=== PATIENT | female | born 1990 | race Caucasian/White ===

== ENCOUNTER → 2017-02-16 | Outpatient (CLI) | payer BC ==
[2017-02-16 20:19] LABS: BASO % 0.2 % (0.0-1.0); EOS # 0.1 K/mm3 (0.0-0.50); EOS % 0.9 % (0.0-3.0); LARGE UNSTAINED CELL # 0.1 K/mm3 (0.0-0.4); LARGE UNSTAINED CELL % 0.7 % (0.0-4.0); LYMPH # 1.6 K/mm3 (1.5-6.5); LYMPH % 17.6 % (24.0-44.0); MEAN CORPUSCULAR HEMOGLOBIN 30.8 pg (27.0-33.0); MEAN CORPUSCULAR HGB CONC 34.3 g/dl (32.0-36.5); MEAN CORPUSCULAR VOLUME 89.9 fl (80.0-96.0); MONO # 0.4 K/mm3 (0.0-0.8); MONO % 3.9 % (0.0-5.0); NEUTROPHILS # 6.8 K/mm3 (1.8-7.7); NEUTROPHILS % 76.7 % (36.0-66.0); PLATELET COUNT, AUTOMATED 342 k/mm3 (150-450); RED CELL DISTRIBUTION WIDTH 12.9 % (11.5-14.5); WHITE BLOOD COUNT 8.9 K/mm3 (4.0-10.0)
[2017-02-17 11:56] LABS: HBsAg Prenatal NEGATIVE (NEGATIVE)
== END ==
LOC: M SMT 14:28
PROVIDERS: ATTEND Advanced Practice Midwife
DX: Z34.81 Encounter for supervision of other normal pregnancy, first trimester (principal)

== ENCOUNTER → 2017-03-05 | Outpatient (REF) | payer BC | LOC: M LAB REF 14:56 | PROVIDERS: ATTEND Advanced Practice Midwife | DX: Z34.81 Encounter for supervision of other normal pregnancy, first trimester (principal) ==

== ENCOUNTER → 2017-03-12 | Outpatient (CLI) | payer BC ==
--- NOTE | 2017-03-16 14:55 | REP ---
OBSTETRIC SONOGRAPHY: HISTORY: Supervision of . FINDINGS: Scanning demonstrates a viable single intrauterine gestation in a free-floating lie. heart rate is recorded at 169 beats per minute. Closed cervical length is 3.8 cm viewed transabdominally. An anterior placenta is seen without evidence of previa. No extrauterine abnormalities observed. No gross anomaly is seen. BIOMETRY CHART: BPD 2.4 cm = 14 weeks 0 days Head circumference 9.0 cm = 14 weeks 0 days Abdominal circumference 7.3 cm = 13 weeks 6 days Femur length 1.0 cm = 13 weeks 0 days Humeral length 1.1 cm = 12 weeks 6 days HC/AC ratio normal 1.23 Cephalic index normal 0.73 Estimated weight 76 grams, 0 pounds 2 ounces, 12th percentile for 14 weeks 1 day. IMPRESSION: Viable single intrauterine gestation at 13 weeks 4 days by today's composite sonographic criteria. MARA by today's sonography 09/13/2017. Signed by Koffi Harry MD 03/16/2017 04:36 P
== END ==
LOC: M RAD 15:14
PROVIDERS: ATTEND Advanced Practice Midwife
DX: Z36 Encounter for antenatal screening of mother (principal)

== ENCOUNTER → 2017-04-05 | Outpatient (REF) | payer BC | LOC: M LAB REF 12:52 | PROVIDERS: ATTEND Advanced Practice Midwife | DX: Z34.82 Encounter for supervision of other normal pregnancy, second trimester (principal) ==

== ENCOUNTER → 2017-04-14 | Outpatient (CLI) | payer BC | LOC: M LAB 15:05 | PROVIDERS: ATTEND Obstetrics & Gynecology | DX: Z34.82 Encounter for supervision of other normal pregnancy, second trimester (principal) ==

== ENCOUNTER → 2017-04-23 | Outpatient (CLI) | payer BC ==
--- NOTE | 2017-04-23 19:09 | REP ---
Obstetric sonography: History: Supervision of for anatomy. Findings: Scanning through the gravid uterus demonstrates a viable single intrauterine gestation in a variable lie. Fetus began the exam in a transverse lie and ended in a breech. motion is identified and heart rate is recorded at 144 beats per minute. An anterior grade 0 placenta is seen without evidence of previa or abruption. Amniotic fluid is subjectively normal. Closed cervical length is 4.0 cm measured transabdominally. No extrauterine abnormalities observed. There has been appropriate interval growth. No anomaly is seen. nose and lips were less than optimally seen. Facial profile is observed, however. Left ventricular cardiac outflow tract view was less than optimally achieved due to position as was the spine. The following anatomic structures are identified and felt to be unremarkable: cranium, choroid plexus, cavum, cerebellum and posterior fossa, lungs, four-chamber heart with right ventricular outflow tract view, diaphragm, left-sided stomach, abdominal wall cord insertion, three-vessel umbilical cord, kidneys and bladder, upper and lower extremities. Biometry chart: BPD 4.5 cm = 19 weeks 5 days HC 17.2 cm = 19 week 6 days AC 14.9 cm = 20 weeks 1 day FL 3.1 cm = 19 weeks 3 days HL 2.9 cm = 19 weeks 3 days HC/AC ratio normal 1.15. Cephalic index normal 0.72. Estimated weight 316 grams 0 pounds 11 ounces, 38th percentile for 20 weeks 1 day. Impression: Viable single intrauterine gestation at 19 weeks 5 days by today's composite criteria. Expected gestational age estimate based on prior sonography is 19 weeks 4 days. MARA by prior sonography September 13, 2017. anatomic survey less than complete. Visualization of nose and lips, left ventricular outflow tract view, and spine. Signed by Koffi Harry MD 04/23/2017 07:25 P
== END ==
LOC: M RAD 14:59
PROVIDERS: ATTEND Specialist
DX: Z36.2 Encounter for other antenatal screening follow-up (principal)

== ENCOUNTER → 2017-06-08 | Outpatient (CLI) | payer BC ==
[2017-06-08 13:45] LABS: MEAN CORPUSCULAR HEMOGLOBIN 30.7 pg (27.0-33.0); MEAN CORPUSCULAR HGB CONC 32.9 g/dl (32.0-36.5); MEAN CORPUSCULAR VOLUME 93.5 fl (80.0-96.0); PLATELET COUNT, AUTOMATED 293 10^3/uL (150-450); RED CELL DISTRIBUTION WIDTH 13.2 % (11.5-14.5)
== END ==
LOC: M SMT 10:23
PROVIDERS: ATTEND Obstetrics & Gynecology
DX: Z34.82 Encounter for supervision of other normal pregnancy, second trimester (principal)

== ENCOUNTER → 2017-08-19 | Outpatient (REF) | payer BC | LOC: M LAB REF 17:01 | DX: Z34.83 Encounter for supervision of other normal pregnancy, third trimester (principal) | CPT/HCPCS: 87081 ==

== ENCOUNTER 2017-09-07 21:21 | Inpatient (IN) | payer BC ==
[2017-09-07 22:48] LABS: HEMATOCRIT 34.6 % (36.0-47.0); HEMOGLOBIN 11.7 g/dl (12.0-16.0); MEAN CORPUSCULAR HEMOGLOBIN 29.8 pg (27.0-33.0); MEAN CORPUSCULAR HGB CONC 33.8 g/dl (32.0-36.5); MEAN CORPUSCULAR VOLUME 88.3 fl (80.0-96.0); PLATELET COUNT, AUTOMATED 242 10^3/uL (150-450); RED BLOOD COUNT 3.92 10^6/uL (4.00-5.40); RED CELL DISTRIBUTION WIDTH 13.4 % (11.5-14.5); WHITE BLOOD COUNT 14.2 10^3/uL (4.0-10.0)
[2017-09-07] MEDS: LR 1,000 ML IV (22:57)
[2017-09-07] MEDS: OXYTOCIN DRIP 30 UNITS in APPROPRIATE DILUENT 1 EA IV (22:57)
[2017-09-07 23:11] LABS: AMPHETAMINES URINE REFLEX NEGATIVE (NEGATIVE); BARBITURATES URINE REFLEX NEGATIVE (NEGATIVE); BENZODIAZEPINES URINE REFLEX NEGATIVE (NEGATIVE); CANNABINOIDS URINE REFLEX NEGATIVE (NEGATIVE); COCAINE METABOLITE URINE REFLE NEGATIVE (NEGATIVE); METHADONE URINE REFLEX NEGATIVE (NEGATIVE); OPIATES URINE REFLEX NEGATIVE (NEGATIVE); PHENCYCLIDINE URINE REFLEX NEGATIVE (NEGATIVE)
[2017-09-08] MEDS ORDERED: FENTANYL 2MCG/ML ROPIVACAINE 0.2% IN 0.9% NACL 200ML IVBAG As Ordered (00:29)
[2017-09-08] MEDS ORDERED: ONDANSETRON 4MG/2ML VIAL (J2405) IV ×2 (02:15→05:15)
[2017-09-08] MEDS ORDERED: EPIDURAL COMMENT XX (02:15)
[2017-09-08] MEDS ORDERED: NALOXONE INJ 0.4 MG/1 ML VIAL (J2310) IV (02:15)
[2017-09-08] MEDS ORDERED: ePHEDrine SULFATE 25 MG/5 ML(5MG/ML) SYRINGE IV (02:15)
[2017-09-08] MEDS ORDERED: LACTATED RINGER'S 1000 ML IV (02:15)
[2017-09-08] MEDS ORDERED: EPIDURAL/PCA KEYS XX (02:15)
[2017-09-08] MEDS ORDERED: REFRIGERATOR IV KEYS XX (02:15)
[2017-09-08] MEDS ORDERED: diphenhydrAMINE INJ 50MG/ML VIAL (J1200) IV (02:15)
[2017-09-08] MEDS ORDERED: FENTANYL/ROPIVACAINE/NACL BAG 200 ML EPIDURAL (02:15)
[2017-09-08 04:50] LABS: CORD GAS ABE V -4.2; CORD GAS O2 SAT V 72.4 %; CORD GAS PCO2 V 43.8 mmHg; CORD GAS PH V 7.318 UNITS; CORD GAS PO2 V 30.2 mmHg; CORD GAS SBC V 20.4 MEQ/L; CORD GAS TCO2 V 23.3 MEQ/L
[2017-09-08 04:54] LABS: CORD GAS ABE A -4.4; CORD GAS HCO3 A 24.9 MEQ/L; CORD GAS O2 SAT A 38.1 %; CORD GAS PCO2 A 63.8 mmHg; CORD GAS PO2 A 18.2 mmHg; CORD GAS SBC A 19.4 MEQ/L; CORD GAS TCO2 A 26.9 MEQ/L
[2017-09-08] MEDS ORDERED: RHOGAM 300 MCG (1500 IU) INJ (J2790) IM (05:15)
[2017-09-08] MEDS ORDERED: DOCUSATE SODIUM 100 MG CAP PO (05:15)
[2017-09-08] MEDS ORDERED: DIBUCAINE 1% OINTMENT 30GM TOP (05:15)
[2017-09-08] MEDS ORDERED: METHYLERGONOVINE MALEATE 0.2 MG TAB PO (05:15)
[2017-09-08] MEDS: OXYTOCIN DRIP 30 UNITS in APPROPRIATE DILUENT 1 EA IV (05:15)
[2017-09-08] MEDS ORDERED: ACETAMINOPHEN 500 MG TAB PO (05:15)
[2017-09-08] MEDS ORDERED: MEASLES,MUMPS,RUBELLA VACCINE INJ (MMR-II) (90707) SC (05:15)
[2017-09-08] MEDS: LIDOCAINE 1% MDV INJ 50 ML VIAL INFIL (05:15)
[2017-09-08] MEDS: IBUPROFEN 800 MG TAB PO (07:24)
[2017-09-08] MEDS: PRENATAL VITAMINS CHEWABLE TABLET PO (08:21)
[2017-09-09] MEDS: PRENATAL VITAMINS CHEWABLE TABLET PO (08:29)
[2017-09-09] MEDS: IBUPROFEN 800 MG TAB PO (08:29)
[2017-09-10] MEDS: IBUPROFEN 800 MG TAB PO (08:30)
[2017-09-10] MEDS: PRENATAL VITAMINS CHEWABLE TABLET PO (08:30)
[2017-09-10 10:16] LABS: FREE THYROXINE INDEX 3.6 % (1.3-4.8); T UPTAKE 22 % (30-39); THYROXINE (T4) 16.3 UG/DL (4.5-12.0)
== END 2017-09-10 11:30 | disposition home or self-care (01) | DRG 560 ==
LOC: M LDO 21:21 → M OBS 09-08 06:48 → M LDI 22:12
PROVIDERS: Specialist
PROC: 10E0XZZ Delivery of Products of Conception, External Approach (ICD-10-PCS; principal; 2017-09-07)
PROC: 0HQ9XZZ Repair Perineum Skin, External Approach (ICD-10-PCS; 2017-09-07)
DX: O69.1XX0 Labor and delivery complicated by cord around neck, with compression, not applicable or unspecified (principal); O70.0 First degree perineal laceration during delivery; Z37.0 Single live birth; Z3A.39 39 weeks gestation of pregnancy

== ENCOUNTER → 2018-07-10 | Outpatient (REF) | payer OTHER ==
[~2018-07-10] MED LIST: COLA100C5 PO; MOTR200T44 PO; PRENTAB9 PO; TYLE325T5 PO
== END ==
LOC: M SFHCLERA 17:58
PROVIDERS: ATTEND Nurse Practitioner Family
DX: R53.81 Other malaise (principal)

== ENCOUNTER → 2018-07-26 | Outpatient (REF) | payer OTHER | LOC: M LAB REF 17:49 | PROVIDERS: ATTEND Specialist | DX: Z12.4 Encounter for screening for malignant neoplasm of cervix (principal) ==

== ENCOUNTER → 2020-07-19 | Outpatient (REF) | payer OTHER ==
[2020-07-19 17:40] LABS: HEMATOCRIT 37.1 % (36.0-47.0); HEMOGLOBIN 12.2 g/dl (12.0-15.5); MEAN CORPUSCULAR HEMOGLOBIN 29.9 pg (27.0-33.0); MEAN CORPUSCULAR HGB CONC 32.9 g/dl (32.0-36.5); MEAN CORPUSCULAR VOLUME 90.9 fl (80.0-96.0); PLATELET COUNT, AUTOMATED 311 10^3/uL (150-450); RED BLOOD COUNT 4.08 10^6/uL (4.00-5.40); WHITE BLOOD COUNT 8.5 10^3/uL (4.0-10.0)
[2020-07-19 19:02] LABS: HEPATITIS C VIRUS ABY INDEX 0.1 INDEX (<0.8); HIV 1&2 SCREEN CENTAUR NEGATIVE (NEGATIVE)
[2020-07-19 19:14] LABS: CHLAMYDIA DNA AMPLIFICATION NEGATIVE (NEGATIVE); GC DNA AMPLIFICATION NEGATIVE (NEGATIVE)
== END ==
LOC: M PLALAB 15:34
PROVIDERS: ATTEND Advanced Practice Midwife
DX: Z36.89 Encounter for other specified antenatal screening (principal); Z3A.00 Weeks of gestation of pregnancy not specified

== ENCOUNTER → 2020-08-14 | Outpatient (REF) | payer OTHER | LOC: M PLALAB 16:38 | PROVIDERS: ATTEND Obstetrics & Gynecology | DX: Z3A.17 17 weeks gestation of pregnancy (principal) ==

== ENCOUNTER → 2020-08-16 | Outpatient (REF) | payer OTHER | LOC: M SFHCWAGY 10:11 | PROVIDERS: ATTEND Obstetrics & Gynecology | DX: Z3A.17 17 weeks gestation of pregnancy (principal) ==

== ENCOUNTER → 2020-09-03 | Outpatient (CLI) | payer OTHER ==
--- NOTE | 2020-09-03 14:34 | REP ---
INDICATION: ANATOMY. COMPARISON: None. TECHNIQUE: Transabdominal and transvaginal obstetric sonography. FINDINGS: Scanning through the gravid uterus demonstrates a viable single intrauterine gestation in breech lie. motion is observed and heart rate is recorded at 138 beats per minute. A posterior placenta is seen, grade 0, low-lying placental position. The inferior edge of the placenta is 1.4 cm from the internal cervical os on transvaginal imaging.. Closed cervical length is measured at 3.8 cm transvaginally. No extrauterine abnormality is observed. Amniotic fluid is subjectively normal. No anomaly is seen. spine is less than optimally seen due to position. The following anatomic structures are identified and felt to be sonographically unremarkable: cranium, choroid plexus, cavum, cerebellum and posterior fossa, face and profile, lungs, four-chamber heart with left and right ventricular outflow tract views, diaphragm, left-sided stomach, abdominal wall cord insertion, three-vessel umbilical cord, kidneys and bladder, and upper and lower extremities. Biometry chart: BPD 4.6 cm, 19 weeks 5 days Head circumference 17.1 cm, 19 weeks 5 days Abdominal circumference 15.1 cm, 20 weeks 3 days Femur length 3.1 cm, 19 weeks 3 days Humeral length 3.0 cm 19 weeks 6 days HC AC ratio normal 1.13 Cephalic index normal 0.74 Estimated weight 328 g, 0 lb 11 oz, 47th percentile for 20 weeks 0 days. IMPRESSION: Viable single intrauterine gestation at 19 weeks 6 days by today's composite sonographic criteria. MARA by today's sonography January 22, 2021. No complication identified. Expected gestational age estimate is 20 weeks 0 days, MARA January 21, 2021 from "known MARA". Low-lying posterior placenta. <Electronically signed by Onel Harry > 09/03/20 [id number]
== END ==
LOC: M WHC 09:30
PROVIDERS: ATTEND Obstetrics & Gynecology
DX: Z36.3 Encounter for antenatal screening for malformations (principal); Z3A.19 19 weeks gestation of pregnancy

== ENCOUNTER → 2020-09-11 | Outpatient (CLI) | payer OTHER | LOC: M WHC 00:23 | PROVIDERS: ATTEND Obstetrics & Gynecology | DX: Z36.89 Encounter for other specified antenatal screening (principal); Z3A.21 21 weeks gestation of pregnancy; Z53.8 Procedure and treatment not carried out for other reasons ==

== ENCOUNTER → 2020-09-13 | Outpatient (REF) | payer OTHER | LOC: M SFHCWAGY 13:04 | PROVIDERS: ATTEND Obstetrics & Gynecology | DX: Z34.92 Encounter for supervision of normal pregnancy, unspecified, second trimester (principal); Z3A.21 21 weeks gestation of pregnancy ==

== ENCOUNTER → 2020-09-27 | Outpatient (CLI) | payer BC, MEDICAID, OTHER ==
--- NOTE | 2020-09-28 20:03 | REP ---
INDICATION: F/U ANATOMY COMPARISON: 09/03/2020 TECHNIQUE: Transabdominal obstetrical ultrasound with color Doppler evaluation. FINDINGS: Examination demonstrates a single live intrauterine in cephalic presentation. motion is identified by technologist. Placenta is noted posterior and grade 1 without evidence for placenta previa or abruption. Amniotic fluid volume is normal. Cervix measures 3.8 cm in length and appears closed.. Gestational age by LMP and 1st ultrasound 23 weeks 3 days with MARA 01/21/2021. Gestational age by current measurements 23 weeks 3 days with MARA 01/21/2021. FHR equals 152 beats per minute. Estimated weight 610 grams (50thpercentile). Anatomical assessment demonstrates normal structures including spine. There is no evidence for low lying placenta on current examination. However there is suggestion for small anterior succenturiate lobe which was not seen on prior examination. IMPRESSION: 1. In conjunction with prior examination anatomical assessment is complete and normal. 2. Current examination cannot exclude anterior succenturiate lobe to the placenta. <Electronically signed by Darnell Posada > 09/28/201958
== END ==
LOC: M WHC 15:03
PROVIDERS: ATTEND Obstetrics & Gynecology
DX: Z36.89 Encounter for other specified antenatal screening (principal); Z3A.21 21 weeks gestation of pregnancy

== ENCOUNTER → 2020-10-22 | Outpatient (REF) | payer OTHER ==
[2020-10-22 15:28] LABS: HEMATOCRIT 35.8 % (36.0-47.0); HEMOGLOBIN 11.3 g/dl (12.0-15.5); MEAN CORPUSCULAR HEMOGLOBIN 30.1 pg (27.0-33.0); MEAN CORPUSCULAR HGB CONC 31.6 g/dl (32.0-36.5); MEAN CORPUSCULAR VOLUME 95.5 fl (80.0-96.0); PLATELET COUNT, AUTOMATED 297 10^3/uL (150-450); RED BLOOD COUNT 3.75 10^6/uL (4.00-5.40); WHITE BLOOD COUNT 8.2 10^3/uL (4.0-10.0)
== END ==
LOC: M PLALAB 11:07
PROVIDERS: ATTEND Advanced Practice Midwife
DX: Z34.90 Encounter for supervision of normal pregnancy, unspecified, unspecified trimester (principal); Z3A.00 Weeks of gestation of pregnancy not specified

== ENCOUNTER → 2020-12-27 | Outpatient (REF) | payer OTHER, MEDICAID | LOC: M SFHCWAGY 10:10 | PROVIDERS: ATTEND Advanced Practice Midwife | DX: O22.03 Varicose veins of lower extremity in pregnancy, third trimester (principal) ==

== ENCOUNTER → 2021-01-15 | Outpatient (CLI) | payer MEDICAID, OTHER | LOC: M LABSMTC 11:22 | PROVIDERS: ATTEND Specialist | DX: Z20.822 Contact with and (suspected) exposure to COVID-19 (principal) ==

== ENCOUNTER 2021-01-18 06:48 | Inpatient (IN) | payer OTHER, MEDICAID ==
[~2021-01-18] VITALS: Ht 170.2 cm; Wt 99.3 kg
[2021-01-18 07:11] VITALS: BP 116/76
[2021-01-18] MEDS ORDERED: LACTATED RINGER'S 1000 ML IV STA (07:22)
[2021-01-18] MEDS ORDERED: OXYTOCIN DRIP 30 UNITS in IV 1 EA IV PRN (07:25)
[2021-01-18 08:05] LABS: HEMATOCRIT 39.5 % (36.0-47.0); HEMOGLOBIN 12.8 g/dl (12.0-15.5); MEAN CORPUSCULAR HGB CONC 32.4 g/dl (32.0-36.5); MEAN CORPUSCULAR VOLUME 92.7 fl (80.0-96.0); PLATELET COUNT, AUTOMATED 234 10^3/uL (150-450); RED BLOOD COUNT 4.26 10^6/uL (4.00-5.40); WHITE BLOOD COUNT 11.8 10^3/uL (4.0-10.0)
[2021-01-18] MEDS ORDERED: MEASLES,MUMPS,RUBELLA VACCINE INJ (MMR-II) (90707) SC SCH (09:45)
[2021-01-18] MEDS ORDERED: RHOGAM 300 MCG (1500 IU) INJ (J2790) IM SCH (09:45)
[2021-01-18] MEDS ORDERED: MOM 30ML SUSPENSION UDC PO PRN (09:45)
[2021-01-18] MEDS ORDERED: ACETAMINOPHEN TAB 650MG DOSE (2X325MG) PO PRN (09:45)
[2021-01-18] MEDS ORDERED: METHYLERGONOVINE MALEATE 0.2 MG TAB PO PRN (09:45)
[2021-01-18] MEDS ORDERED: IBUPROFEN 600MG TAB PO PRN (09:45)
[2021-01-18] MEDS ORDERED: DOCUSATE SODIUM 100MG CAPSULE PO PRN (09:45)
[2021-01-18] MEDS ORDERED: IBUPROFEN 800 MG TAB PO PRN (09:45)
[2021-01-18] MEDS ORDERED: OXYTOCIN DRIP 30 UNITS in IV 1 EA IV SCH (09:45)
[2021-01-18] MEDS: ACETAMINOPHEN 500 MG TAB PO PRN ×2 (10:37→18:11)
[2021-01-18 13:45] VITALS: BP 103/57
--- NOTE | 2021-01-18 15:21 | HPEPDOC ---
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[employer] History: No pertinent history Past Medical History Surgical History: Appendectomy Social History Marital Status: Family situation: Spouse/partner home Psychosocial History: No pertinent psych hx * Smoker: non-smoker Alcohol: Denies Allergies Coded Allergies: No Known Allergies (Unverified , 09/07/17) Medications Scheduled Docusate Sodium (Colace) 100 Mg Cap, 100 MG PO QHS No.137/Iron/Folic Acd ( Vitamin Tablet) 1 Tab Tab, 1 TAB PO DAILY Scheduled PRN Acetaminophen (Tylenol) 325 Mg Tab, 1,000 MG PO Q6HP PRN for MILD PAIN (PS 1-4) Ibuprofen (Motrin Ib) 200 Mg Tab, 800 MG PO Q8HP PRN for MODERATE PAIN (PS 5-7) Physical Examination Physical Examination GENERAL: Alert and oriented times three. BREAST: . ABDOMEN: Gravid and non-tender to touch. FETUS: Is vertex (VTX) by sterile vaginal examination (SVE), fetus is vertex (VTX) by Mike. HEART RATE: Regular rate and rhythm. LUNGS: Clear to auscultation (CTA). Vital Signs/I&O Vital Signs Date Time Temp Pulse Resp B/P (MAP) Pulse Ox O2 Delivery O2 Flow Rate FiO2 01/18/21 07:11 67 116/76 (89) Laboratory Data 24H LABS Laboratory Tests 2 01/18/21 07:29: Serology Scanned Report Hepatitis B Testing 01/18/21 07:49: Nucleated Red Blood Cells % (auto) 0.0 CBC/BMP Laboratory Tests 01/18/21 07:49 Pertinent Laboratoy Data Blood Type: AB+ HIV: Negative Hepatitis B: Negative Hepatitis C: Negative Rapid Plasma Reagin: Nonreactive Rubella: Immune Chlamydia/Gonorrhea: Negative Group B Streptococcus: Negative Glucose Tolerance Test: 68 Anatomy Ultrasound Placenta Location: Anterior Normal Anatomy: Yes Placenta Previa: No Vaginal Examination Dilation: 6 cm Effacement: 100% Station: -1 Cervical Consistency: Soft Cervical Position: Anterior Assessment Variability: Moderate Accelerations: Positive Decelerations: None Tocometer Contractions: Yes Assessment/Plan Assessment 30-year-old 2 para 1 at 39 weeks 4 days estimated gestational age in active labor Reassuring status Plan Admit and orient. 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 Diet: Regular. Group B Streptococcus (GBS) negative. Labs and intravenous (IV) per unit protocol. Counseled on Pitocin and induction of labor (IOL). Anticipate normal spontaneous delivery (). C-S as appropriate. WILLIAM HASTINGS MD. Jan 18, 2021 15:21
--- NOTE | 2021-01-18 15:24 | DNPDOC ---
[facility] Delivery Note Delivery Note DATE OF DELIVERY: 01/18/2021 TIME OF : 0909 GENDER: Female APGARS: 9 and 9. WEIGHT: 3580 g or 7 lbs. 14 oz. LACERATIONS: none ANESTHESIA: none ESTIMATED BLOOD LOSS: 300ml COUNTS: 5 laparotomy sponges accounted for prior to after delivery. DELIVERY NOTE: On 01/19/2020 at 0909, Mrs. Nunes, a 30-year-old 2 now para 2 had a spontaneous vaginal delivery of a liveborn female infant Apgars 9 and 9 weight 7 lbs. 14 oz. at 35 g . Head was delivered occiput anterior (OA), followed by delivery of the shoulders and corpus. Infant was handed to mom with a good cry. Cord was clamped times two and was cut by support person under my direction. Placenta was then drained and delivered grossly intact. A premixed bag of 500 mL of normal saline with 30 units of Pitocin was then bolused along with uterine massage until the uterus was firm. On inspection, cervix, vagina, perineum was grossly intact and hemostatic. Mom and baby in recovery on stable condition. Couples decided to name in daughter Gabrielle. WILLIAM HASTINGS MD. Jan 18, 2021 15:24
[2021-01-18 18:00] VITALS: BP 125/66
[2021-01-19] MEDS: ACETAMINOPHEN 500 MG TAB PO PRN (05:39)
[2021-01-19 06:00] VITALS: BP 115/86
[2021-01-19] MEDS ORDERED: PRENATAL VITAMINS CHEWABLE TABLET PO SCH (09:00)
--- NOTE | 2021-01-19 10:57 | IPNPDOC ---
Progress Note Date of Service: Jan 19, 2021 Day#: 1 Progress Note SUBJECT: Doing well without complaints. Ambulating, voiding and pain is well-c ontrolled. Reports minimal lochia. OBJECTIVE: VITAL SIGNS: Within normal limits, afebrile. Alert and oriented times three. Abdomen: Fundus firm at U-2. Soft, NTTP. Ext: neg calf tenderness. ASSESSMENT: day #1 status post . Recovering in stable condition. PLAN: 1. Continue routine care 2. Discharge plans for tomorrow VS, I&O, 24H, Fishbone Vital Signs/I&O Vital Signs Date Time Temp Pulse Resp B/P (MAP) Pulse Ox O2 Delivery O2 Flow Rate FiO2 01/19/21 06:00 97.7 69 16 115/86 (96) 01/18/21 18:00 99 Room Air I&O- Last 24 Hours up to 6 AM 01/19/21 05:59 Intake Total 1740 ml Output Total 550 ml Balance 1190 ml WILLIAM HASTINGS MD. Jan 19, 2021 10:57
== END 2021-01-19 13:47 | disposition home or self-care (01) | DRG 560 ==
LOC: M LDO 06:48 → M LDI 07:25 → M OBS 13:25
PROVIDERS: ADMIT Obstetrics & Gynecology; ATTEND Obstetrics & Gynecology
PROC: 10E0XZZ Delivery of Products of Conception, External Approach (ICD-10-PCS; principal; 2021-01-18)
DX: O80 Encounter for full-term uncomplicated delivery (principal); Z3A.39 39 weeks gestation of pregnancy; Z37.0 Single live birth

== ENCOUNTER → 2021-11-07 | Outpatient (CLI) | payer OTHER ==
[2021-11-07 07:53] LABS: BASO % 0.8 % (0.0-1.0); EOS # 0.1 10^3/uL (0.0-0.5); EOS % 2.4 % (0.0-3.0); HEMATOCRIT 40.7 % (36.0-47.0); HEMOGLOBIN 13.3 g/dl (12.0-15.5); LYMPH # 1.5 10^3/uL (1.5-5.0); MEAN CORPUSCULAR HEMOGLOBIN 29.5 pg (27.0-33.0); MEAN CORPUSCULAR HGB CONC 32.7 g/dl (32.0-36.5); MEAN CORPUSCULAR VOLUME 90.2 fl (80.0-96.0); MONO # 0.4 10^3/uL (0.0-0.8); MONO % 7.5 % (2.0-8.0); NEUTROPHILS % 59.9 % (36.0-66.0); PLATELET COUNT, AUTOMATED 324 10^3/uL (150-450); RED BLOOD COUNT 4.51 10^6/uL (4.00-5.40); WHITE BLOOD COUNT 5.1 10^3/uL (4.0-10.0)
[2021-11-07 08:25] LABS: ERYTHROCYTE SEDIMENTATION RATE 5 mm/hr (0-20)
[2021-11-07 08:29] LABS: ALBUMIN 3.9 GM/DL (3.2-5.2); ALT/SGPT 27 U/L (12-78); BILIRUBIN,TOTAL 0.4 MG/DL (0.2-1.0); BLOOD UREA NITROGEN 14 MG/DL (7-18); CALCIUM LEVEL 9.4 MG/DL (8.5-10.1); CARBON DIOXIDE LEVEL 27 MEQ/L (21-32); CHLORIDE LEVEL 111 MEQ/L (98-107); CHOLESTEROL LEVEL 145 MG/DL (<200); CHOLESTEROL RISK RATIO 3.452 (<5); CREATININE FOR GFR 0.69 MG/DL (0.55-1.30); FREE T4 0.96 NG/DL (0.76-1.46); GLOMERULAR FILTRATION RATE > 60.0 (>60); GLUCOSE, FASTING 94 MG/DL (70-100); HDL CHOLESTEROL 42 MG/DL (>40); LDL CHOLESTEROL 88 MG/DL (<100); NON-HDL-C 103 MG/DL; POTASSIUM SERUM 4.9 MEQ/L (3.5-5.1); SODIUM LEVEL 142 MEQ/L (136-145); TOTAL PROTEIN 7.1 GM/DL (6.4-8.2); TRIGLYCERIDES LEVEL 76 MG/DL (<150)
[2021-11-07 09:05] LABS: VITAMIN B12 LEVEL 370 PG/ML
[2021-11-08 20:07] LABS: ANA (HEP2) Negative (.)
== END ==
LOC: M LAB 06:34
PROVIDERS: ATTEND Physician Assistant
DX: R51.9 Headache, unspecified (principal); Z13.220 Encounter for screening for lipoid disorders

== ENCOUNTER → 2021-12-09 | Outpatient (CLI) | payer OTHER | LOC: M RAD 08:57 | PROVIDERS: ATTEND Physician Assistant | DX: R51.9 Headache, unspecified (principal) ==

== ENCOUNTER → 2022-09-22 | Outpatient (REF) | payer OTHER | LOC: M SFHCWAGY 13:04 | PROVIDERS: ATTEND Specialist | DX: Z01.419 Encounter for gynecological examination (general) (routine) without abnormal findings (principal) ==

== ENCOUNTER → 2024-03-27 | Outpatient (REF) | payer OTHER, MEDICAID | LOC: M LAB REF 17:21 | PROVIDERS: ATTEND Family Medicine | DX: L02.416 Cutaneous abscess of left lower limb (principal) ==

== ENCOUNTER → 2024-10-11 | Outpatient (CLI) | payer OTHER | LOC: M RAD 08:51 | PROVIDERS: ATTEND Physician Assistant | DX: R60.0 Localized edema (principal) ==

== ENCOUNTER → 2025-01-17 | Outpatient (REF) | payer OTHER | LOC: M SFHCWAGY 10:02 | PROVIDERS: ATTEND Physician Assistant | DX: S81.802A Unspecified open wound, left lower leg, initial encounter (principal); Y93.9 Activity, unspecified; Y92.9 Unspecified place or not applicable ==